=== PATIENT | female | born 1965 | race Caucasian/White ===

== ENCOUNTER 2019-07-17 20:15 | Emergency (ER) | payer OTHER ==
[~2019-07-17] VITALS: Ht 162.6 cm; Wt 127.0 kg
[2019-07-17 20:15] VITALS: BP 161/88
--- NOTE | 2019-07-17 20:15 | NUR ---
PT WAS WHEEL CHAIRED TO BED #1
--- NOTE | 2019-07-17 20:45 | NUR ---
54 YO F BIB FAMILY VIA WC C/O BODY SHAKING X 1 DAY. PT STATES "I HAVE NOT STOPPED SHAKING SINCE WAKING UP THIS MORNING". MILD BODY TREMORS NOTED TO HEAD, UPPER/LOWER EXTREMETIES. PT IS AWAKE, A/O X 4. SPEAKING IN FULL, CLEAR SENTENCES. EYES PERRLA. PT DENIES PAIN, N/V, SOB, FEVER AT THIS TIME. PT STATES SHE HAS HX OF SEIZURES. LAST SEIZURE: LAST MONTH; PT STATES SHE HAS FULL BODY SPASMS WITH LOC. -- CALM, COOPERATIVE. SKIN PINK, WARM, DRY. BREATHING EVEN, UNLABORED. -- MILD WEAKNESS NOTED TO HAND SYNOPTIC METEOROLOGIST EQUAL BILATERALLY. PT STATES SHE AMBULATES WITH WALKER AT HOME DUE TO MILD WEAKNESS WHICH IS NORMAL FOR HER. PMH-- BIPOLAR, ANXIETY, SCHIZOPHRENIA, FIBROMYALGIA, ARTHRITIS, SEIZURES RX-- COMPLIANT
--- NOTE | 2019-07-17 20:54 | NUR ---
PT TAKES DEPAKOTE 500MG
[2019-07-17] MEDS ORDERED: LORazepam 2 MG/ML VIAL IM ONE (21:50)
--- NOTE | 2019-07-17 22:05 | NUR ---
PT ESCORTED TO RR VIA WC WITH EMT SUPERVISION.
--- NOTE | 2019-07-17 22:10 | NUR ---
PT RETURNED TO BED VIA . URINE SAMPLE COLLECTED.
--- NOTE | 2019-07-17 22:12 | NUR ---
PHLEB AT BEDSIDE DRAWING LABS.
--- NOTE | 2019-07-17 22:20 | NUR ---
PT TAKEN TO CT VIA WC.
[2019-07-17 22:22] LABS: BASOPHILS % (AUTO) 0.5 % (0.0-2.0); EOSINOPHILS # (AUTO) 0.2 K/uL (0-0.4); EOSINOPHILS % (AUTO) 2.8 % (0.0-4.0); HEMATOCRIT 38.8 % (36-48); HEMOGLOBIN 12.7 g/dL (12.0-16.0); LYMPHOCYTES # (AUTO) 3.6 K/uL (2.5-16.5); LYMPHOCYTES % (AUTO) 50.6 % (20.5-51.1); MEAN CORPUSCULAR HEMOGLOBIN 30 pg (27-31); MEAN CORPUSCULAR HGB CONC 33 g/dL (33-37); MEAN CORPUSCULAR VOLUME 92.1 fL (80-94); MONOCYTES # (AUTO) 0.7 K/uL (0.8-1.0); MONOCYTES % (AUTO) 9.3 % (1.7-9.3); NEUTROPHILS # (AUTO) 2.6 K/uL (1.8-7.7); NEUTROPHILS % (AUTO) 36.8 % (42.2-75.2); PLATELET COUNT (AUTO) 211 K/uL (140-450); RED BLOOD CELL COUNT(AUTO) 4.21 MIL/uL (4.20-5.40); RED CELL DISTRIBUTION WIDTH 14.8 % (11.6-13.7); WHITE BLOOD COUNT (AUTO) 7.1 K/uL (4.8-10.8)
--- NOTE | 2019-07-17 22:37 | NUR ---
PT RETURNED FROM CT VIA WC.
[2019-07-17 22:40] LABS: ANION GAP 10.2 (8-16); CARBON DIOXIDE 33.2 mmol/L (21-32); CREATININE 0.8 mg/dL (0.6-1.3); POTASSIUM 4.4 mmol/L (3.5-5.1)
[2019-07-17 22:41] LABS: BARBITURATE, URINE NEG. ng/ml (NEG <=200); BENZODIAZEPINE, URINE NEG. ng/mL (NEG <=200); CANNABINOID, URINE NEG. ng/mL (NEG <=50); COCAINE, URINE NEG. ng/mL (NEG <=300); OPIATE, URINE NEG. ng/mL (NEG <=2000); PHENCYCLIDINE SCREEN,URINE NEG. ng/mL (NEG <=25)
--- NOTE | 2019-07-17 23:20 | NUR ---
PT REPORTS FEELING BETTER. PT STATES SHAKING HAS IMPROVED AND IS NOT SHAKING MUCH ANY MORE.
[2019-07-17 23:25] VITALS: BP 129/58
== END 2019-07-17 23:25 | disposition home or self-care (01) ==
LOC: MED 20:15
DX: R25.1 Tremor, unspecified (principal); R51 Headache; F31.9 Bipolar disorder, unspecified; F41.9 Anxiety disorder, unspecified; F20.9 Schizophrenia, unspecified; Z90.49 Acquired absence of other specified parts of digestive tract; Z98.890 Other specified postprocedural states; Z88.0 Allergy status to penicillin; Z98.84 Bariatric surgery status
CPT/HCPCS: 36415; 70450; 80048; 80305; 81025; 85025; 96372; 99284; J2060

== ENCOUNTER 2019-11-14 12:43 | Inpatient (IN) | payer OTHER ==
[~2019-11-14] VITALS: Ht 152.4 cm; Wt 109.8 kg
[2019-11-14 12:45] VITALS: BP 128/82
--- NOTE | 2019-11-14 12:50 | NUR ---
BIBA C/O OVERDOSE OF AT LEAST 15 TANS OF GABAPENTIN, PER MANDARIN CHINESE TEACHER. DENIES ANY PAIN AT THIS TIME. REPORTS FEELING DIZZY. A&OX4. PATIENT STATES PAIN OF 0/10 AT THIS TIME; VSS; PATIENT POSITIONED FOR COMFORT; HOB ELEVATED; BEDRAILS UP X1; BED DOWN. ER MADE AWARE OF PT STATUS. Addendum: 11/14/19 at 1633 by [facility] 1:1 SITTER IS AT BEDSIDE.
[2019-11-14 13:40] LABS: BASOPHILS % (AUTO) 0.6 % (0.0-2.0); EOSINOPHILS # (AUTO) 0.1 K/uL (0-0.4); EOSINOPHILS % (AUTO) 1.2 % (0.0-4.0); HEMATOCRIT 41.4 % (36-48); HEMOGLOBIN 13.5 g/dL (12.0-16.0); LYMPHOCYTES # (AUTO) 2.4 K/uL (2.5-16.5); LYMPHOCYTES % (AUTO) 36.5 % (20.5-51.1); MEAN CORPUSCULAR HEMOGLOBIN 30 pg (27-31); MEAN CORPUSCULAR HGB CONC 33 g/dL (33-37); MEAN CORPUSCULAR VOLUME 91.1 fL (80-94); MONOCYTES # (AUTO) 0.6 K/uL (0.8-1.0); NEUTROPHILS # (AUTO) 3.4 K/uL (1.8-7.7); NEUTROPHILS % (AUTO) 51.7 % (42.2-75.2); PLATELET COUNT (AUTO) 190 K/uL (140-450); RED BLOOD CELL COUNT(AUTO) 4.55 MIL/uL (4.20-5.40); RED CELL DISTRIBUTION WIDTH 14.2 % (11.6-13.7); WHITE BLOOD COUNT (AUTO) 6.5 K/uL (4.8-10.8)
[2019-11-14 13:56] LABS: ALBUMIN 3.8 g/dL (3.4-5.0); ASPARTATE AMINOTRANSFERASE 24 U/L (15-37); CHLORIDE 101 mmol/L (98-107); CREATININE 0.9 mg/dL (0.6-1.3); GFR ARICAN-AMERICAN 83 mL/min (>90); GLUCOSE 138 mg/dL (74-106); SODIUM SERUM 140 mmol/L (136-145); TOTAL BILIRUBIN 0.5 mg/dL (0.0-1.0); UREA NITROGEN, BLOOD 13 mg/dL (7-18)
[2019-11-14 13:57] LABS: ACETAMINOPHEN < 0.5 ug/ml (10-30); SALICYLATE < 2.8 mg/dL (2.8-20.0)
--- NOTE | 2019-11-14 14:00 | NUR ---
CALLED PT'S CHILD BEBA BOWMAN AT PHONE #: [phone] LEFT NO ANSWER.
--- NOTE | 2019-11-14 14:04 | NUR ---
CALLED POISON CONTROL AND SPOKE TO YOLI. GOT ADVICE FOR 6 HOURS OBSERVATION FOR DROWSINESS. AND CHECK ASA AND TYLENOL FOR DRUG SCREENING.
[2019-11-14 14:28] LABS: APPEARANCE,URINE CLEAR (CLEAR); BILIRUBIN,URINE NEGATIVE (NEGATIVE); BLOOD, URINE NEGATIVE (NEGATIVE); COLOR,URINE YELLOW (YELLOW); LEUKOCYTE ESTERASE ,URINE NEGATIVE (NEGATIVE); NITRITE, URINE NEGATIVE (NEGATIVE); UGLUCOSE NEGATIVE (NEGATIVE)
[2019-11-14 14:36] LABS: BARBITURATE, URINE NEGATIVE ng/ml (NEG <=200); BENZODIAZEPINE, URINE NEGATIVE ng/mL (NEG <=200); CANNABINOID, URINE NEGATIVE ng/mL (NEG <=50); COCAINE, URINE NEGATIVE ng/mL (NEG <=300); OPIATE, URINE NEGATIVE ng/mL (NEG <=2000); PHENCYCLIDINE SCREEN,URINE NEGATIVE ng/mL (NEG <=25)
--- NOTE | 2019-11-14 15:05 | NUR ---
PT IS SLEEPING IN THE BED. VSS.
--- NOTE | 2019-11-14 16:07 | NUR ---
PT IS RESTING IN THE BED WITH EYES CLOSED. ELI. SPOKE TO HER DAUGHTER SUMMER REGARDING PT'S CONDITIONS AT BEDSIDE. CAN CONTACT HER AT PHONE #: [phone] FOR ANY EMERGENCY OR MEDICAL UPDATES.
--- NOTE | 2019-11-14 16:31 | NUR ---
PT STARTED TO BE EMOTINAL AND SHAKE HER ARMS. DR. RALF MENDOZAD AND PRESENTED TO PT AT BEDSIDE RIGHT AWAY. PT CALMS DOWN AFTER DR. ARAMBULA TALKED TO HER. 20G IV INSERTED TO PT'S RT HAND. Addendum: 11/14/19 at 1633 by [facility] 1:1 SITTER IS AT BEDSIDE.
--- NOTE | 2019-11-14 17:03 | NUR ---
SPOKE TO ALEXANDRA FROM POISON CONTROL FOR FOLLOW UP OF PT'S CONDITIONS.
--- NOTE | 2019-11-14 17:10 | NUR ---
PT IS MEDICALLY CLEARED BY DR. ARAMBULA. WILL CONTINUE OBSERVE PT. 1:1 SITTER IS AT BEDSIDE.
--- NOTE | 2019-11-14 17:25 | NUR ---
PT IS SPEAKING TO THE PSYCHIATRIST VIA TELEPSYCHIATRY.
[2019-11-14] MEDS ORDERED: ALBU0.0912 IH (18:14)
[2019-11-14] MEDS ORDERED: GABA100C PO (18:14)
[2019-11-14] MEDS ORDERED: LANS15EC28 PO (18:15)
[2019-11-14] MEDS ORDERED: ATOR40TA PO (18:18)
[2019-11-14] MEDS ORDERED: LAMO25TA6 PO (18:18)
[2019-11-14] MEDS ORDERED: LEVE750T8 PO (18:18)
[2019-11-14] MEDS ORDERED: LURA40TA PO (18:19)
[2019-11-14] MEDS ORDERED: ONDA4TAB PO (18:19)
[2019-11-14] MEDS ORDERED: TERB250T55 PO (18:21)
--- NOTE | 2019-11-14 18:32 | NUR ---
PT IS RESTING IN THE BED WITH EYES CLOSED. VSS. PT IS ON MONITOR AND WILL CONTINUE OBSERVE PT. 1:1 SITTER IS AT BEDSIDE.
--- NOTE | 2019-11-14 19:11 | NUR ---
Pt report given to NATI CH. Transfer of care at this time.
--- NOTE | 2019-11-14 19:17 | NUR ---
REPORT RECEIVED FROM NATI BELL. PT SITTING UPRIGHT IN [place] SITDAV AT BEDSIDE. CALM AND APPROPRIATE AT THIS TIME. WILL CONTINUE TO MONITOR.
--- NOTE | 2019-11-14 19:55 | NUR ---
Received intake paperwork and hold. Paperwork was sent to the following facililities [facility]/ [facility]/ [facility]/ [facility] Prakash/ [facility]/ [facility] Will keep facility updated with any information
--- NOTE | 2019-11-14 20:30 | NUR ---
PT FINISHED EATING, NO NEEDS AT THIS TIME. VITALLY STABLE ON MONITOR. AWAKE. SITTER AT BEDSIDE. WILL CONTINUE TO MONITOR.
--- NOTE | 2019-11-14 21:45 | NUR ---
PT SLEEPING BUT EASILY AROUSABLE. VITALLY STABLE PER MONITOR. NEUROLOGICALLY INTACT. NO NEEDS AT THIS TIME. SITTER AT BEDSIDE. WILL CONTINUE TO MONITOR.
--- NOTE | 2019-11-14 22:30 | NUR ---
PT RESTING QUIETLY WITH EYES CLOSED; EASILY AROUSABLE. NEUROLOGICALLY INTACT. VSS. NO NEEDS AT THIS TIME. SITTER AT BEDSIDE.
--- NOTE | 2019-11-14 23:30 | NUR ---
PT SLEEPING; EASILY AROUSABLE. VSS. SITTER AT BEDSIDE. WILL CONTINUE TO MONITOR.
--- NOTE | 2019-11-15 00:45 | NUR ---
PT SLEEPING, VSS; EASILY AROUSABLE. NO NEEDS AT THIS TIME. SITTER AT BEDSIDE. WILL CONTINUE TO MONITOR.
[2019-11-15] MEDS ORDERED: HYDROcodone/APAP 5/325 MG 1 TAB TAB PO PRN (01:45)
[2019-11-15] MEDS ORDERED: ALBUTEROL 0.083% 2.5 MG/3 ML NEBU INH PRN (01:45)
[2019-11-15] MEDS ORDERED: ONDANSETRON 4 MG/2 ML VIAL IVP PRN (01:45)
[2019-11-15] MEDS ORDERED: ACETAMINOPHEN 325 MG TAB PO PRN (01:45)
--- NOTE | 2019-11-15 01:45 | NUR ---
PT RESTING WITH EYES CLOSED; EASILY AROUSABLE. NO NEEDS AT THIS TIME. VSS. SITTER AT BEDSIDE. WILL CONTINUE TO MONITOR.
--- NOTE | 2019-11-15 03:30 | NUR ---
PT SLEEPING; EASILY AROUSABLE. SITTER AT BEDSIDE. WILL CONTINUE TO MONITOR.
--- NOTE | 2019-11-15 04:30 | NUR ---
PT REQUESTED TO USE RESTROOM; SITTER WALKED WITH PT. VITALLY STABLE. RETURNED TO [facility]. NS MAINTANENCE IV STARTED. PT C/O PAIN IN IV. IV REMOVED AND NEW ON PLACED; 20G IN RFA. NO OTHER NEEDS AT THIS TIME. SITTER AT BEDSIDE. WILL CONTINUE TO MONITOR.
[2019-11-15] MEDS: NACL 0.9% 1,000 ML IV SCH ×2 (05:04→13:09)
--- NOTE | 2019-11-15 05:30 | NUR ---
IVF INFUSING. VSS. PT RESTING; EASILY AROUSABLE. SITTER AT BEDSIDE. WILL CONTINUE TO MONITOR.
--- NOTE | 2019-11-15 06:30 | NUR ---
PT RESTING COMFORTABLY WITH EYES CLOSED. EASILY AROUSABLE. NO NEEDS AT THIS TIME. SITTER AT BEDSIDE. WILL CONTINUE TO MONITOR.
--- NOTE | 2019-11-15 07:12 | NUR ---
RECIEVED REPORT FROM NIMO RN, PT SLEEPING. IV MAINTENENCE FLUIDS RUNNING. NO CONCERNS AT THIS TIME.
--- NOTE | 2019-11-15 07:57 | NUR ---
PER ACCOUNT EXECUTIVE SOFTWARE SALES TRAY, PT TO BE ON TELE HOLD IN ER
--- NOTE | 2019-11-15 08:42 | NUR ---
PT awake and alert on bed and eating breakfast. VSS.
[2019-11-15] MEDS: levETIRAcetam 500 MG TAB PO SCH ×2 (08:54→20:29)
--- NOTE | 2019-11-15 08:55 | NUR ---
KEPPRA PO ADMINISTERED
--- NOTE | 2019-11-15 10:30 | NUR ---
Pt. on bed sleeping comfortably. No needs at this time. Sitter on bedside. Will continue to monitor.
--- NOTE | 2019-11-15 11:38 | NUR ---
pt sleeping, maintenence fluids running, no concerns at this time
--- NOTE | 2019-11-15 11:39 | NUR ---
sitter at bedside
--- NOTE | 2019-11-15 12:11 | NUR ---
pt upright eating lunch in bed, 1-1 sitter
[2019-11-15 12:56] VITALS: BP 137/53
--- NOTE | 2019-11-15 12:56 | NUR ---
PT ARRIVED UNIT ACCOMPANIED WITH ER NURSE DANITZA. PT IS AAOX4, SPEAKS MALAWIAN, ABLE TO FOLLOW COMMAND AND COMMUNICATE APPROPRIATELY. RESPIRATION EVEN AND UNLABORED ON RA. DENIED SUICIDAL IDEATION AND HEAR VOICES. NO SIGNS OF DISTRESS NOTED. IV ON RFA 20G, CLEAN AND INTACT, INFUSING PER MD ORDER. SKIN CLEAN AND DRY. PT IS CONTINENT AND ABLE TO AMBULATE TO THE BATHROOM. TELE MONITOR ATTACHED. APPLIED ALLERGIC WRIST BAND AND SEIZURE PRECAUTION; BOTH RAILS COVERED. SIGN POSTED FOR SEIZURE PRECAUTION AND STRICT I&O. SAFETY MEASURES IN PLACE. BED IN LOW POSITION AND 1:1 SITTER BY BEDSIDE.
--- NOTE | 2019-11-15 12:56 | NUR ---
Patient will be admitted to care of [facility]. Admited to tele. Will go to room 100a. Belongings list completed. Report to nury mcclain. pt has 300 ml of nacl left running at 100mls/hr. vs stable upon admit
--- NOTE | 2019-11-15 13:09 | NUR ---
IVF ADMINISTERED PER MD ORDER AT 100 ML/HR. MRSA NARES COLLECTED. VITAL SIGNS TAKEN: BP 137/53, PULSE 90, RR 19, SPO2 97% ON RA, DENIED PAIN, SOB AND DIZZINESS. DENIED HEARING VOICES, SUICIDAL IDEATION, BUT STATED "NO, I JUST ANGRY AT MY FAMILY." COMFORTED PT AND PROVIDED TISSUE. PT AWAKE AND RESTING ON BED QUIETLY. NO SIGNS OF DISTRESS NOTED. TELE MONITOR ATTACHED. SAFETY MEASURES IN PLACE. BED IN LOW POSITION AND 1:1 SITTER BY BEDSIDE.
--- NOTE | 2019-11-15 15:06 | NUR ---
at bthis time there are no beds at contracted facilities will cont to monitor notes and assist in placement
--- NOTE | 2019-11-15 15:28 | NUR ---
PT IS RESTING ON BED. EVEN AND UNLABORED CHEST RISES NOTED. NO SIGNS OF DISTRESS NOTE. TELE MONITOR ATTACHED. SAFETY MEASURES IN PLACE.
--- NOTE | 2019-11-15 15:35 | NUR ---
ATTENDED TO PATIENT AND PATIENT SAID, " I DON'T WANT MY MACHINE STUFFER BEBA TO COME SEE ME." ASKED PT FOR MACHINE STUFFER NAME- PT WROTE "BEBA BOWMAN" ON THE PAPER AND CONTACT SECURITY.
[2019-11-15 16:00] VITALS: BP 124/51
--- NOTE | 2019-11-15 17:30 | NUR ---
PT IS RESTING ON BED AND AROUSABLE TO VOICE. PT DENIED SUICIDAL IDEATION AT THIS TIME AND STATED, " I AM JUST TIRED AND WANNA GET SOME REST." NO SIGNS OF DISTRESS NOTED. TELE MONITOR ATTACHED. SAFETY MEASURES IN PLACE. BED IN LOW POSITION AND 1:1 SITTER BY BEDSIDE.
--- NOTE | 2019-11-15 19:28 | NUR ---
ENDORSED PT TO REAL ESTATE TEACHER NURSE FOR CONTINUITY OF CARE. PT AWAKE AND RESTING ON BED. NO SIGNS OF DISTRESS NOTED. TELE MONITOR ATTACHED. SAFETY MEASURES IN PLACE. 1:1 SITTER BY BEDSIDE.
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
[2019-11-15 20:00] VITALS: BP 157/82
--- NOTE | 2019-11-15 20:33 | NUR ---
RECEIVED PATIENT ON ROOM AIR, PULSE OX SAT 96%. PT DENIES SOB. PRN HHN NOT INDICATED AT THIS TIME. PT MADE AWARE OF ORDERED MEDICATION FREQUENCY AND INSTRUCTED TO CALL NEEDED FOR SOB. NO ACUTE RESPIRATORY DISTRESS NOTED AT THIS TIME. WILL CONTINUE TO MONITOR.
[2019-11-15] MEDS ORDERED: ATORVASTATIN 20 MG TAB PO SCH (21:00)
--- NOTE | 2019-11-15 22:10 | NUR ---
PT AWAKE, RESTING WELL IN BED, SIDERAILS UP x3, SAFETY MEASURES IN PLACE. NO COMPLAINTS AT THIS TIME. PT ORIENTED TO 1:1 SITTER AT BEDSIDE. RN REINFORCED TAPE AT IV SITE PER PATIENTS REQUEST.
[2019-11-16] VITALS: BP 138/67
--- NOTE | 2019-11-16 00:35 | NUR ---
PATIENT SLEEPING IN BED, PRONE POSITION, ABLE TO INDEPENDENTLY SELF TURN, HUNG NEW IV BAG. PROVIDED EDUCATION ON IV HYDRATION AND REORIENTED PATIENT TO TREATMENT PLAN. VERBALIZED UNDERSTANDING. PATIENT CALM AND COOPERATIVE AND DENIES SUICIDAL IDEATION AT THIS TIME.
[2019-11-16] MEDS: NACL 0.9% 1,000 ML IV SCH ×3 (00:40→17:41)
--- NOTE | 2019-11-16 02:08 | NUR ---
PATIENT WENT TO THE RESTROOM TO VOID. STANDBY ASSISTANCE. REINFORCED TELE MONITOR, HEART RATE WAS LOW IN 40'S BUT AFTER REINFORCED, HEART RATE BACK IN 70's. PATIENT DENIES PAIN, BACK IN BED AND SAFETY MEASURES IN PLACE. 1:2 SITTER.
[2019-11-16 04:00] VITALS: BP 144/90
--- NOTE | 2019-11-16 04:15 | NUR ---
VITAL SIGNS WITHIN NORMAL LIMITS. PATIENT OPENS EYES TO VOICE. MAKES NEEDS KNOWN. DENIES PAIN. APPEARS COHERENT, ABLE TO STATE TIME AND PLACE. ALL NEEDS MET AT THIS TIME. DENIES N/V.
--- NOTE | 2019-11-16 06:24 | NUR ---
RESTING WELL, VISIBLE CHEST RISE AND FALL. PATIENT AMBULATES OCCASIONALLY TO RESTROOM. IV FLUIDS CONTINUE TO INFUSE AT 100ML/HR. 1:1 SITTER.
--- NOTE | 2019-11-16 07:20 | NUR ---
RECEIVED PATIENT FROM WOODEN FRAME BUILDER NURSE ESSENCE FOR CONTINUITY OF CARE. PATIENT IS SLEEPING AT THIS TIME. RESPIRATIONS EVEN AND UNLABORED, ROOM AIR. VISIBLE CHEST RISE NOTED. ON TELE MONITORING. ABDOMEN SOFT, ROUND, NONTENDER. BOWEL SOUNDS ACTIVE X4 QUADS. SKIN WARM, DRY, AND INTACT. IV IN THE RIGHT FOREARM, GAUGE 20 RUNNING NS AT 100 ML/HR, PATENT AND INTACT. PATIENT IS AMBULATORY. PATIENT IS CONTINENT. BED IN LOW POSITION. 1:[address] CALL LIGHT IS WITHIN REACH. WILL CONTINUE TO MONITOR.
[2019-11-16 07:51] LABS: BASOPHILS # (AUTO) 0.1 K/uL (0.00-0.22); BASOPHILS % (AUTO) 0.7 % (0.0-2.0); EOSINOPHILS # (AUTO) 0.1 K/uL (0-0.4); EOSINOPHILS % (AUTO) 1.6 % (0.0-4.0); HEMATOCRIT 39.1 % (36-48); HEMOGLOBIN 12.7 g/dL (12.0-16.0); LYMPHOCYTES % (AUTO) 40.4 % (20.5-51.1); MEAN CORPUSCULAR HEMOGLOBIN 30 pg (27-31); MEAN CORPUSCULAR HGB CONC 32 g/dL (33-37); MEAN CORPUSCULAR VOLUME 91.7 fL (80-94); MONOCYTES # (AUTO) 0.6 K/uL (0.8-1.0); MONOCYTES % (AUTO) 7.6 % (1.7-9.3); NEUTROPHILS # (AUTO) 3.7 K/uL (1.8-7.7); NEUTROPHILS % (AUTO) 49.7 % (42.2-75.2); PLATELET COUNT (AUTO) 173 K/uL (140-450); RED BLOOD CELL COUNT(AUTO) 4.26 MIL/uL (4.20-5.40); RED CELL DISTRIBUTION WIDTH 14.1 % (11.6-13.7); WHITE BLOOD COUNT (AUTO) 7.5 K/uL (4.8-10.8)
[2019-11-16 08:00] VITALS: BP 120/69
[2019-11-16 08:08] LABS: ANION GAP 9.5 (8-16); CARBON DIOXIDE 31.1 mmol/L (21-32); CREATININE 0.8 mg/dL (0.6-1.3); POTASSIUM 3.6 mmol/L (3.5-5.1)
[2019-11-16 08:09] LABS: MAGNESIUM 1.6 mg/dL (1.8-2.4); PHOSPHORUS 3.6 mg/dL (2.5-4.9)
[2019-11-16] MEDS: levETIRAcetam 500 MG TAB PO SCH (08:29)
--- NOTE | 2019-11-16 08:29 | NUR ---
GIVEN KEPPRA PO. GIVEN MEDICATION EDUCATION. BED IN LOW POSITION. CALL LIGHT IS WITHIN REACH. 1:[address]
--- NOTE | 2019-11-16 08:50 | NUR ---
DR. CARDONA MADE ROUNDS.
--- NOTE | 2019-11-16 08:57 | NUR ---
PATIENT HAS BEEN SCREENED AND CATEGORIZED LOW NUTRITION RISK. PATIENT WILL BE SEEN WITHIN 7 DAYS OF ADMISSION. 11/21/[address]
--- NOTE | 2019-11-16 10:42 | NUR ---
NATI ABEBE FROM [facility] CALLED REGARDING PATIENT'S PSYCH PLACEMENT. PHONE NUMBER IS [phone]
--- NOTE | 2019-11-16 11:54 | NUR ---
VITAL SIGNS CHECK. PATIENT DENIES ANY PAIN. BED IN LOW POSITION. CALL LIGHT IS WITHIN REACH. WILL CONTINUE TO MONITOR
[2019-11-16 11:57] VITALS: BP 149/87
[2019-11-16 12:00] VITALS: BP 149/87
--- NOTE | 2019-11-16 12:30 | NUR ---
SPOKE WITH DR. KOENIG REGARDING THE ISSUANCE OF NEW 5150 FORM, STATED HE IS UNABLE TO COME UNTIL AROUND [address] KOENIG STATED HE WILL FAX THE 5150 FORM AND WILL DROP OFF THE ORIGINAL THIS AFTERNOON AROUND 1730 HRS. CINDY MADE AWARE.
--- NOTE | 2019-11-16 12:43 | NUR ---
CALLED [facility] FOR A DIFFERENT FOOD. PATIENT STATED SHE'S ALLERGIC TO PORK.
--- NOTE | 2019-11-16 12:49 | NUR ---
FAXED COPY OF THE 9324 FORM TO [facility].
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
--- NOTE | 2019-11-16 13:32 | NUR ---
CALLED ALEXANDRA FROM [facility] IF SHE GOT THE FAXED 5150 PAPERWORK. SHE STATED SHE RECEIVED IT
--- NOTE | 2019-11-16 13:52 | NUR ---
GIVEN REPORT TO NATI BERNAL, AT [facility].
--- NOTE | 2019-11-16 13:57 | NUR ---
SPOKE WITH [facility]( ADMISSIONS INTAKE AT [place]), NOTIFIED WITH THE STATUS OF ORIGINAL [address] KOENIG THAT HE WILL BRING TO [facility] THE ORIGINAL FORM AFTER 1730 HRS THIS AFTERNOON. PER [facility], THEY WILL HOLD THE BED FOR PT UNTIL SHE ARRIVES WITH THE ORIGINAL 5150 FORM. CINDY ASSIGNED AND DOREEN MADE AWARE. Addendum: 11/16/19 at 1413 by Raysa Simmons RN [facility]'S TEL#: [phone]
--- NOTE | 2019-11-16 14:31 | NUR ---
PATIENT WILL BE IN UNIT 200 AT [facility]. CONTACT IS ALEXANDRA, ADMISSION INTAKE. [phone]. ACCE[address]ING DR. IS DR. DE SOUZA.
--- NOTE | 2019-11-16 15:18 | NUR ---
PATIENT IS REFUSING TELE MONITORING. REFUSED ANOTHER BAG OF NS TO BE HANG WELL.
--- NOTE | 2019-11-16 15:20 | NUR ---
DISCHARGE PLANNING: MONICA CHUNG OF [facility] TRANSPORT AUTH IS H [id number]. Addendum: 11/16/19 at 1623 by Millicent Yarbrough WILL CALL CLAIMS SORTER SET UP WITH ALANA MILLER. CHARGE NURSE RAFAL MADE AWARE.
--- NOTE | 2019-11-16 15:25 | NUR ---
PAGED DR. HAIRSTON REGARDING PATIENT'S MEDICATION RECOMMENDATIONS
--- NOTE | 2019-11-16 15:55 | NUR ---
PAGED DR. HAIRSTON AGAIN. WILL WAIT FOR CALL BACK
[2019-11-16 16:00] VITALS: BP 115/45
--- NOTE | 2019-11-16 16:00 | NUR ---
VITAL SIGNS CHECK. DENIES PAIN. RESPIRATIONS EVEN AND UNLABORED, ROOM AIR. VISIBLE CHEST RISE. BED IN LOW POSITION. CALL LIGHT IS WITHIN REACH. WILL CONTINUE TO MONITOR
--- NOTE | 2019-11-16 17:49 | NUR ---
PATIENT IS AWAKE, WATCHING TV. DENIES SUICIDAL IDEATION. DENIES PAIN. NO SIGNS OF DISTRESS NOTED. BED IN LOW POSITION. CALL LIGHT IS WITHIN REACH. WILL CONTINUE TO MONITOR
--- NOTE | 2019-11-16 18:15 | NUR ---
PATIENT IS EATING DINNER AT THIS TIME. NO SIGNS OF DISTRESS NOTED. BED IN LOW POSITION. CALL LIGHT IS WITHIN REACH. WILL CONTINUE TO MONITOR
--- NOTE | 2019-11-16 18:30 | NUR ---
PATIENT SIGNED DISCHARGE PAPERWORK. NO FURTHER QUESTIONS.
--- NOTE | 2019-11-16 18:31 | NUR ---
PATIENT REFUSED PNA AND FLU VACCINES.
--- NOTE | 2019-11-16 18:31 | NUR ---
WAITING FOR DR. CARDONA FOR THE 5150 FORM AND TRANSPORT TO [facility]
--- NOTE | 2019-11-16 19:09 | NUR ---
TANO, CLIENT SERVICE SUPERVISOR, STATED SHE WILL TELL THE ASSIGNED RN ABOUT THE ORIGINAL 5150 FORM.
--- NOTE | 2019-11-16 19:11 | NUR ---
DR. KOENIG IS HERE BRINGING THE ORIGINAL 5150 FORM. CALLED [facility] TO ACTIVATE THE WILL CALL, SPOKE WITH IVÁN, ETA WILL BE AT 8:30 PM [place]. PRINCESS DAMIAN ASSIGNED.
--- NOTE | 2019-11-16 19:37 | NUR ---
ENDORSED PATIENT TO THE FINANCIAL SERVICES EDUCATION CONSULTANT NURSE FOR CONTINUITY OF CARE. INFORMED PM NURSE ABOUT THE 5150 FORM, AND TRANSFER, AND BELONGINGS. PATIENT IS IN STABLE CONDITION.
--- NOTE | 2019-11-16 19:45 | NUR ---
SEEN PT. AWAKE AND ALERT. WAITING TO BE TRANSFERRED TO ANOTHER HOSPITAL PLANNED. WITH 1:1 SITTER. NO COMPLAINTS DONE. SMILING. GOOD AFFECT. ALL TRANSFER PAPER WORKS DONE AND SIGNED. REPORT PER AM RN TO RN RECEIVING FACILITY DONE. PT. WAITING TO BE PICKED UP BY AMBULANCE.
--- NOTE | 2019-11-16 20:13 | NUR ---
PT. PICKED UP BY [facility]. REPORT AND PAPER WORKS HANDED TO THEM. PT. AWAKE AND ALERT. SMILING. ABLE TO VERBALIZE NEEDS WELL. NO COMPLAINTS DONE. BELONGINGS SENT WITH PT. NO BELONGINGS LEFT BEHIND.
== END 2019-11-16 20:25 | DRG 817 ==
LOC: MED 12:43 → MTU 11-15 01:41
PROVIDERS: ADMIT Internal Medicine Pulmonary Disease; ATTEND Internal Medicine Pulmonary Disease
DX: T42.6X2A Poisoning by other antiepileptic and sedative-hypnotic drugs, intentional self-harm, initial encounter (principal); R45.851 Suicidal ideations; F31.30 Bipolar disorder, current episode depressed, mild or moderate severity, unspecified; E86.9 Volume depletion, unspecified; Z88.0 Allergy status to penicillin; Z79.899 Other long term (current) drug therapy; Z79.84 Long term (current) use of oral hypoglycemic drugs; Y92.89 Other specified places as the place of occurrence of the external cause
CPT/HCPCS: 36415; 80048; 80053; 80305; 81003; 83735; 84100; 85025; 87081; 93005; 99285; G0480; G0482; J7030